=== PATIENT | female | born 1975 | race Caucasian/White ===

== ENCOUNTER 2022-08-21 13:06 | Emergency (ER) | payer MEDICAID ==
[~2022-08-21] VITALS: Ht 167.6 cm; Wt 71.0 kg
[2022-08-21 13:12] VITALS: BP 173/102
[2022-08-21] MEDS ORDERED: IBUP-2028 MT (14:53)
== END 2022-08-21 15:30 | disposition home or self-care (01) ==
LOC: ER 13:06
DX: S63.616A Unspecified sprain of right little finger, initial encounter (principal); W01.0XXA Fall on same level from slipping, tripping and stumbling without subsequent striking against object, initial encounter; Y93.89 Activity, other specified; Y92.018 Other place in single-family (private) house as the place of occurrence of the external cause
CPT/HCPCS: 73130; 99283